=== PATIENT | female | born 1995 | race African-American/Black ===

== ENCOUNTER 2017-02-04 23:24 | Emergency (ER) | payer OTHER ==
[~2017-02-04 23:24] MED LIST: FERR-43 PO; PREN-88 PO
== END 2017-02-05 00:30 | disposition left against medical advice (07) ==
LOC: ER 23:24
DX: R07.81 Pleurodynia (principal); Z53.21 Procedure and treatment not carried out due to patient leaving prior to being seen by health care provider

== ENCOUNTER 2017-05-25 20:46 | Emergency (ER) | payer OTHER ==
[~2017-05-25] VITALS: Ht 165.1 cm; Wt 60.0 kg
[2017-05-25 20:55] VITALS: BP 134/75
== END 2017-05-25 20:55 | disposition left against medical advice (07) ==
LOC: ER 20:46
DX: R07.9 Chest pain, unspecified (principal); R42 Dizziness and giddiness; R10.9 Unspecified abdominal pain; Z53.21 Procedure and treatment not carried out due to patient leaving prior to being seen by health care provider

== ENCOUNTER 2020-11-01 00:31 | Emergency (ER) | payer OTHER ==
[~2020-11-01] VITALS: Ht 160 cm; Wt 63.0 kg
[2020-11-01 01:26] VITALS: BP 109/91
[2020-11-01 01:50] LABS: CLARITY URINE CLEAR (CLEAR); COLOR URINE YELLOW (YELLOW); KETONES URINE TRACE (NEGATIVE); LEUKOCYTE ESTERASE URINE NEGATIVE (NEGATIVE); NITRITE URINE NEGATIVE (NEGATIVE); OCCULT BLOOD URINE NEGATIVE (NEGATIVE); PROTEIN URINE TRACE (NEGATIVE); SPECIFIC GRAVITY URINE 1.028 (1.005-1.030)
== END 2020-11-01 03:14 | disposition left against medical advice (07) ==
LOC: ER 00:31
DX: Z53.21 Procedure and treatment not carried out due to patient leaving prior to being seen by health care provider (principal)
CPT/HCPCS: 81003; 81025

== ENCOUNTER 2023-03-29 10:58 | Emergency (ER) | payer OTHER ==
[~2023-03-29] VITALS: Ht 165.1 cm; Wt 69.0 kg
[2023-03-29 11:13] VITALS: O2SAT 100
[2023-03-29] MEDS ORDERED: DEXAMETHASONE 10 MG/ML VIAL PO ONE (11:45)
[2023-03-29] MEDS ORDERED: DIPHENHYDRAMINE 25MG CAPSULE PO ONE (11:45)
[2023-03-29] MEDS ORDERED: KETOROLAC 30MG/ML VIAL IM ONE (11:45)
[2023-03-29 12:12] LABS: CLARITY URINE CLOUDY (CLEAR); COLOR URINE YELLOW (YELLOW); GLUCOSE URINE NEGATIVE (NEGATIVE); KETONES URINE NEGATIVE (NEGATIVE); LEUKOCYTE ESTERASE URINE NEGATIVE (NEGATIVE); NITRITE URINE NEGATIVE (NEGATIVE); OCCULT BLOOD URINE NEGATIVE (NEGATIVE); PH URINE 6.5 (4.5-8.0); PROTEIN URINE NEGATIVE (NEGATIVE); SPECIFIC GRAVITY URINE 1.025 (1.005-1.030)
[2023-03-29 12:26] LABS: MUCUS URINE 2+ /lpf (< = 2+); SQUAMOUS EPITHELIAL CELL URINE 2+ /lpf (RARE/1+)
[2023-03-29 12:27] LABS: RBC URINE 0-2 /hpf (0-2); WBC URINE 0-2 /hpf (0-2)
[2023-03-29 12:29] LABS: BACTERIA URINE 1+
[2023-03-29] MEDS ORDERED: NAPR375T5 MT (13:05)
[2023-03-29] MEDS ORDERED: OXYM30SP26 BOTHNSTRLS (13:05)
[2023-03-29 13:54] VITALS: BP 122/72; PULSE 85; RESP 18; TEMP 98.2
== END 2023-03-29 14:10 | disposition home or self-care (01) ==
LOC: ER 11:06
DX: R51.9 Headache, unspecified (principal); H69.81 Other specified disorders of Eustachian tube, right ear
CPT/HCPCS: 81003; 81025; 96372; 99283; Q0163; J1100; J1885; Z7610